=== PATIENT | female | born 1930 | race Caucasian/White ===

== ENCOUNTER → 2016-04-12 | Outpatient (CLI) | payer OTHER ==
[2016-04-12 13:05] LABS: ALT/SGPT 18 U/L (12-78); BLOOD UREA NITROGEN 24 mg/dl (7-18); CALCIUM 9.6 mg/dl (8.5-10.1); CARBON DIOXIDE 29 mmol/L (21-32); CHLORIDE 105 mmol/L (98-107); GLUCOSE 95 mg/dl (70-99); POTASSIUM 3.5 mmol/L (3.5-5.1); SODIUM 143 mmol/L (136-145)
[2016-04-12 13:08] LABS: ALB/GLOB RATIO 0.8 (0.9-2); ALKALINE PHOSPHATASE 89 U/L (45-117); AST/SGOT 17 U/L (15-37)
== END | disposition home or self-care (01) ==
LOC: C.LABPVFM 10:12
PROVIDERS: ATTEND Nurse Practitioner
DX: R53.83 Other fatigue (principal); I10 Essential (primary) hypertension; N28.9 Disorder of kidney and ureter, unspecified

== ENCOUNTER → 2016-04-14 | Outpatient (CLI) | payer OTHER | END | disposition home or self-care (01) | LOC: C.LABPVFM 14:00 | PROVIDERS: ATTEND Family Medicine | DX: N39.0 Urinary tract infection, site not specified (principal) ==

== ENCOUNTER → 2016-07-15 | Outpatient (CLI) | payer OTHER ==
--- NOTE | 2016-07-15 14:56 | DIAGNOSTIC IMAGING REPORT ---
KUB CLINICAL HISTORY: Generalized abdominal pain. FINDINGS: 2 AP supine abdominal radiographs are correlated with abdominal CT dated 01/26/2015. There is a nonobstructed abdominal bowel gas pattern. No evidence of intraperitoneal free air is seen on these supine views. There are no abnormal abdominal calcifications. Numerous phleboliths are again seen in the pelvis. Phleboliths are also seen along the course of the right gonadal vein. The skeletal structures are osteopenic. Mild lumbosacral spondylosis is observed. IMPRESSION: Nonobstructed abdominal bowel gas pattern. Electronically signed by: Amari Bridges M.D. 07/15/2016 2:54 PM Dictated Date/Time: 07/15/2016 2:53 PM
== END | disposition home or self-care (01) ==
LOC: C.RADPV 13:16
PROVIDERS: ATTEND Family Medicine
DX: R10.9 Unspecified abdominal pain (principal)

== ENCOUNTER → 2016-09-27 | Outpatient (CLI) | payer OTHER ==
[2016-09-27 17:45] LABS: BLOOD UREA NITROGEN 16 mg/dl (7-18); BUN/CREATININE RATIO 13.1 (10-20); CALCIUM 9.5 mg/dl (8.5-10.1); CARBON DIOXIDE 31 mmol/L (21-32); CHLORIDE 105 mmol/L (98-107); CHOLESTEROL 218 mg/dl (0-200); GLUCOSE 106 mg/dl (70-99); POTASSIUM 3.5 mmol/L (3.5-5.1); SODIUM 142 mmol/L (136-145)
[2016-09-27 17:48] LABS: HDL CHOLESTEROL 44 mg/dl; LDL CHOLESTEROL CALCULATED 140 mg/dl; TRIGLYCERIDES 170 mg/dl (0-150); VERY LOW DENSITY LIPOPROT CALC 34 mg/dl
== END | disposition home or self-care (01) ==
LOC: C.LABPVFM 12:12
PROVIDERS: ATTEND Family Medicine
DX: N39.0 Urinary tract infection, site not specified (principal); E78.5 Hyperlipidemia, unspecified

== ENCOUNTER → 2016-10-08 | Outpatient (CLI) | payer OTHER ==
[2016-10-08 13:07] LABS: URINE APPEARANCE CLEAR (CLEAR); URINE BILIRUBIN NEG (NEG); URINE COLOR YELLOW; URINE EPITHELIAL CELL AUTO >30 /lpf (0-5); URINE NITRITE NEG (NEG); URINE SPECIFIC GRAVITY 1.016 (1.000-1.030); UROBILINOGEN NEG (NEG); ZZUR CULT IF INDIC CLEAN CATCH YES
[2016-10-08 13:16] LABS: MANUAL MICROSCOPIC REQUIRED? NO; REVIEW REQ? NO
== END | disposition home or self-care (01) ==
LOC: C.LABPVFM 10:22
PROVIDERS: ATTEND Family Medicine
DX: N39.0 Urinary tract infection, site not specified (principal)

== ENCOUNTER → 2016-10-14 | Outpatient (CLI) | payer OTHER ==
--- NOTE | 2016-10-14 14:46 | DIAGNOSTIC IMAGING REPORT ---
ABD/PELVIS NO IV OR ORAL CONT HISTORY: 85 years-old Female N39.0 UTI (urinary tract infection)rule out stones acute urinary tract infection with concern for nephrolithiasis. Initial exam. COMPARISON: CT abdomen and pelvis 01/28/2015 TECHNIQUE: Multiple axial CT images of the abdomen and pelvis were obtained without contrast. A dose lowering technique was used consistent with the principals of ANKUR. FINDINGS: Subsegmental bibasilar atelectasis is present. There is no pneumoperitoneum. Inferior cardiac chambers are moderately enlarged. The liver, spleen, gallbladder, pancreas and adrenal glands are within normal limits. The kidneys and ureters are within normal limits without renal calculi or hydronephrosis. No significant urinary bladder wall thickening or surrounding inflammatory stranding. Prior hysterectomy. Moderate atherosclerotic plaquing of the abdominal aorta is present. There is no bulky adenopathy. Small sliding type hiatal hernia. No bowel obstruction or focal bowel wall thickening. Colonic diverticulosis without diverticulitis noted. The appendix appears normal. Soft tissues are unremarkable. Bones are intact. There is facet arthropathy of the lower lumbar spine. 2 mm anterolisthesis L4 on L5 is likely secondary to facet disease. IMPRESSION: 1. No acute intra-abdominal or intrapelvic abnormality identified, specifically no renal calculi or hydronephrosis. 2. Small sliding-type hiatal hernia. 3. Cardiomegaly. 4. Colonic diverticulosis without diverticulitis. The above report was generated using voice recognition software. It may contain grammatical, syntax or spelling errors. Electronically signed by: Oscar Murillo M.D. 10/14/2016 2:44 PM Dictated Date/Time: 10/14/2016 2:40 PM
== END | disposition home or self-care (01) ==
LOC: C.CTS 12:27
PROVIDERS: ATTEND Urology
DX: N39.0 Urinary tract infection, site not specified (principal); K44.9 Diaphragmatic hernia without obstruction or gangrene; I51.7 Cardiomegaly; K57.90 Diverticulosis of intestine, part unspecified, without perforation or abscess without bleeding

== ENCOUNTER 2019-03-18 22:08 | Inpatient (IN) ==
[2019-03-18] MEDS ORDERED: ONDANSETRON INJ 2 MG/ML 2 ML VIAL IV STA (22:22)
[2019-03-18] MEDS ORDERED: SODIUM CHLORIDE 0.9% 1000ML 1,000 ML IV SCH (22:30)
--- NOTE | 2019-03-18 22:30 | Emergency Department Note ---
Entered by Moi Mcclure acting as a scribe for History of Present Illness General Chief complaint: Vomiting Stated complaint: VOMITING, DEHYDRATION Time Seen by Provider: 03/18/19 22:14 Source: patient and family () History of Present Illness Onset (ago): week(s) (two and a half weeks ago) Location: abdomen Severity: similar to prior episodes Pain Consistency: + other (vomiting) Quality: + other (persistent) Associated symptoms: + other (Positive for nausea, weakness, and a decreased appetite. Negative for abdominal pain.) The patient is an 88 year old female who presents to the emergency department with complaints of persistent vomiting beginning two and a half weeks ago. Per , the patient has been persistently vomiting, and he notes that the patient cannot keep anything but soft foods down. He reports that the patient was in the emergency department ten days ago for similar symptoms. He states that the patient is able to keep food down for a few days at a time, but he notes that the patient starts to vomit again. He reports that the patient is weak, and he states that the patient has a decreased appetite. The patient compl ains of nausea but denies any abdominal pain. Home Medications Home Medications Medication Instructions Recorded Confirmed Type atorvastatin 80 mg tablet 80 mg PO HS 08/21/18 03/18/19 History omeprazole 20 mg capsule,delayed 20 mg PO DAILY 08/21/18 03/18/19 History release amlodipine 2.5 mg tablet 2.5 mg PO DAILY tab 11/07/18 03/18/19 History triamterene 37.5 1 tab PO DAILY tab 11/07/18 03/18/19 History mg-hydrochlorothiazide 25 mg tablet potassium chloride 10 meq PO HS 03/09/19 03/18/19 History potassium chloride 20 meq PO QAM 03/09/19 03/18/19 History ranitidine HCl 150 mg PO BID 03/09/19 03/18/19 History vit C,M-Qh-csawy-lutein-zeaxan 1 tab PO BID 03/09/19 03/18/19 History [PreserVision AREDS-2] brimonidine [Alphagan P] 1 drp OPB BIDM 03/18/19 03/18/19 History metoprolol succinate 25 mg PO DAILY 03/18/19 03/18/19 History travoprost 1 drp OPB HS 03/18/19 03/18/19 History Allergies Allergy/AdvReac Type Severity Reaction Status Date / Time Bactrim TABS Allergy Hives Uncoded 03/18/19 23:05 Past Med/Surg History Social History marital status: Current Living Situation: Spouse current occupational status: retired Feels Safe at Home: Yes Smoking Status: Never smoker Hx Alcohol Use: No Hx Substance Use: No Dental Care, Regularly: Yes Seatbelt Use: always Review of Systems See HPI for pertinent positives & negatives. and A total of 10 systems reviewed and were otherwise negative Physical Exam Vital Signs Vital Signs - 24 hr 03/18/19 22:12 03/19/19 00:05 Temperature 37.1 C Temperature Source Oral Pulse Rate 75 Pulse Rate [Apical] 72 Respiratory Rate 18 16 Respiratory Effort / Characteristics Non-Labored Spontaneous Respiratory Depth Normal Respiratory Pattern Regular Blood Pressure 169/95 H Blood Pressure [Left Arm] 178/96 H Blood Pressure Mean 119 Blood Pressure Mean [Left Arm] 123 Blood Pressure Position Sitting Pulse Oximetry 92 95 Oxygen Delivery Method Room Air Room Air Sepsis Recent Fever Within 48 Hours No Sepsis New/Unexplained Change in Mental Status No Sepsis Action Taken by Nursing No Action Required CONSTITUTIONAL/VITAL SIGNS: Reviewed / noted above. GENERAL: Non-toxic in appearance. INTEGUMENTARY: Warm, dry, and [place]. HEAD: Normocephalic. EYES: without scleral icterus or trauma. ENT/OROPHARYNX: clear. Mucous membranes are dry. LYMPHADENOPATHY/NECK: Is supple without lymphadenopathy or meningismus. RESPIRATORY: Lungs clear and equal. CARDIOVASCULAR: Regular rate and rhythm. GI/ABDOMEN: Soft. No organomegaly or pulsatile mass. No rebound or guarding. Normal bowel sounds. Mild mid abdominal tenderness. EXTREMITIES: Warm and well perfused. BACK: No CVA tenderness. NEUROLOGICAL: Intact without focal deficits. PSYCHIATRIC: normal affect. MUSCULOSKELETAL: Normally developed with good muscle tone. Course Course 2216: The patient was evaluated in room B12. A complete history and physical exam was performed. 0047: I reevaluated and updated the patient. Her refuses to take her home because he feels that she is took weak and he cannot get her to the bath room. 0105: Upon reevaluation, the patient is stable. I discussed the findings and the treatment plan with the patient. She expresses agreement and understanding. I spoke with Dr. Skinner of the [facility] Hospitalist Service. The patient will be evaluated for further management. Consultations Consultation #1: I reviewed the patient's case with Dr. Skinner - Hospitalist, [facility]. He will evaluate the patient for further management. Time: 01:05 Administered Medications Ioversol (Optiray 320 100ml) 100 ml IV ONCE PRN PRN Reason: Interaction Checking Stop: 03/23/19 00:02 Last Admin: 03/19/19 00:04 Dose: 93 ml Documented by: [id number] Discontinued Medications Sodium Chloride (Nss 1000ml) 1,000 mls @ 999 mls/hr IV .Q1H1M CAROL Stop: 03/18/19 23:30 Last Infusion: 03/18/19 23:50 Dose: 0 mls/hr Documented by: [id number] Admin: 03/18/19 22:44 Dose: 999 mls/hr Documented by: [id number] Ceftriaxone Sodium (Rocephin) 1,000 mg in 50 mls @ 100 mls/hr IV NOW STA Stop: 03/18/19 23:45 Last Infusion: 03/19/19 00:32 Dose: 0 mls/hr Documented by: [id number] Admin: 03/19/19 00:02 Dose: 100 mls/hr Documented by: [id number] Ondansetron HCl (Zofran) 4 mg IV NOW STA Stop: 03/18/19 22:23 Last Admin: 03/18/19 22:44 Dose: 4 mg Documented by: [id number] Medical Decision Making Differential Diagnosis Differential diagnosis: Etiologies such as gastroenteritis, food borne illness, infections, appendicitis, diverticulitis, inflammatory bowel disease, obstruction, GI bleed, biliary pathology, cardiac process, intracranial process, as well as others were entertained. Medical Records Attestation: I reviewed the patient's medical records. Home Medications Current Medication List: was personally reviewed by me Laboratory Data Attestation: I reviewed the patient's lab results. Result diagrams: 03/18/19 22:41 03/18/19 22:41 Lab Results 03/18/19 03/18/19 03/18/19 Range/Units 22:41 22:41 22:41 WBC 12.29 H (4.8-10.8) K/uL RBC 4.86 (4.2-5.4) M/uL Hgb 14.2 (12.0-16.0) g/dL Hct 40.9 (37-47) % MCV 84.2 (80-100) fL MCH 29.2 (25-34) pg MCHC 34.7 (32-36) g/dL RDW Std Deviation 43.8 (36.4-46.3) fL RDW Coeff of Geri 14.2 (11.5-14.5) % Plt Count 230 (130-400) K/uL MPV 10.2 (7.4-10.4) fL Immature Gran % (Auto) 0.2 % Neut % (Auto) 58.3 % Lymph % (Auto) 33.5 % [place] % (Auto) 7.1 % Eos % (Auto) 0.7 % Baso % (Auto) 0.2 % Immature Gran # (Auto) 0.02 (0.00-0.02) K/uL Neut # (Auto) 7.17 H (1.4-6.5) K/uL Lymph # (Auto) 4.12 H (1.2-3.4) K/uL [place] # (Auto) 0.87 H (0.11-0.59) K/uL Eos # (Auto) 0.09 (0-0.5) K/uL Baso # (Auto) 0.02 (0-0.2) K/uL Sodium 139 (136-145) mmol/L Potassium 3.1 L (3.5-5.1) mmol/L Chloride 100 (98-107) mmol/L Carbon Dioxide 32 (21-32) mmol/L Anion Gap 7.0 (3-11) BUN 17 (7-18) mg/dl Creatinine 1.21 H (0.6-1.2) mg/dl Est Cr Clr Drug Dosing Not Reportable Est GFR ( Amer) 45.9 Est GFR (Non-Af Amer) 39.6 BUN/Creatinine Ratio 13.7 (10-20) Glucose 121 H (70-99) mg/dl Lactate 1.7 (0.4-2.0) mmol/L Calcium 9.7 (8.5-10.1) mg/dl Total Bilirubin 2.0 H (0.2-1) mg/dl AST 23 (15-37) U/L ALT 21 (12-78) U/L Alkaline Phosphatase 97 (45-117) U/L Troponin I < 0.015 (0-0.045) ng/ml Total Protein 7.9 (6.4-8.2) gm/dl Albumin 3.5 (3.4-5.0) gm/dl Globulin 4.4 H (2.5-4.0) gm/dl Albumin/Globulin Ratio 0.8 L (0.9-2) Lipase 328 (73-393) U/L Specimen Hemolysis Urine Color Urine Appearance (Clear) Urine pH (4.5-7.5) Ur Specific [place] (1.000-1.030) Urine Protein (Negative) Urine Glucose (UA) (Negative) Urine Ketones (Negative) Urine Blood (Negative) Urine Nitrite (Negative) Urine Bilirubin (Negative) Urine Urobilinogen (Negative) Ur Leukocyte Esterase (Negative) Urine WBC (Auto) (0-5) /hpf Urine RBC (Auto) (0-4) /hpf U Hyaline Cast (Auto) (0-5) /lpf U Epithel Cells (Auto) (0-5) /lpf Urine Bacteria (Auto) (Negative) Urine Yeast 03/18/19 Range/Units 22:41 WBC (4.8-10.8) K/uL RBC (4.2-5.4) M/uL Hgb (12.0-16.0) g/dL Hct (37-47) % MCV (80-100) fL MCH (25-34) pg MCHC (32-36) g/dL RDW Std Deviation (36.4-46.3) fL RDW Coeff of Geri (11.5-14.5) % Plt Count (130-400) K/uL MPV (7.4-10.4) fL Immature Gran % (Auto) % Neut % (Auto) % Lymph % (Auto) % [place] % (Auto) % Eos % (Auto) % Baso % (Auto) % Immature Gran # (Auto) (0.00-0.02) K/uL Neut # (Auto) (1.4-6.5) K/uL Lymph # (Auto) (1.2-3.4) K/uL [place] # (Auto) (0.11-0.59) K/uL Eos # (Auto) (0-0.5) K/uL Baso # (Auto) (0-0.2) K/uL Sodium (136-145) mmol/L Potassium (3.5-5.1) mmol/L Chloride (98-107) mmol/L Carbon Dioxide (21-32) mmol/L Anion Gap (3-11) BUN (7-18) mg/dl Creatinine (0.6-1.2) mg/dl Est Cr Clr Drug Dosing Est GFR ( Amer) Est GFR (Non-Af Amer) BUN/Creatinine Ratio (10-20) Glucose (70-99) mg/dl Lactate (0.4-2.0) mmol/L Calcium (8.5-10.1) mg/dl Total Bilirubin (0.2-1) mg/dl AST (15-37) U/L ALT (12-78) U/L Alkaline Phosphatase (45-117) U/L Troponin I (0-0.045) ng/ml Total Protein (6.4-8.2) gm/dl Albumin (3.4-5.0) gm/dl Globulin (2.5-4.0) gm/dl Albumin/Globulin Ratio (0.9-2) Lipase (73-393) U/L Specimen Hemolysis Urine Color Yellow Urine Appearance Turbid A (Clear) Urine pH 7.0 (4.5-7.5) Ur Specific [place] 1.016 (1.000-1.030) Urine Protein 1+ H (Negative) Urine Glucose (UA) Negative (Negative) Urine Ketones Negative (Negative) Urine Blood 1+ H (Negative) Urine Nitrite Positive A (Negative) Urine Bilirubin Negative (Negative) Urine Urobilinogen Negative (Negative) Ur Leukocyte Esterase 3+ H (Negative) Urine WBC (Auto) >30 H (0-5) /hpf Urine RBC (Auto) 0-4 (0-4) /hpf U Hyaline Cast (Auto) 5-10 H (0-5) /lpf U Epithel Cells (Auto) >30 H (0-5) /lpf Urine Bacteria (Auto) 4+ H (Negative) Urine Yeast Not Reportable Imaging Data Radiologist's Impression: Radiology results as stated below per my review and the radiologist's interpretation: CT ABDOMEN & PELVIS With Contrast: No acute process along the GI tract. Normal appendix. Cholelithiasis without cholecystitis. Status post hysterectomy. Unremarkable appearance of the liver, pancreas, spleen, adrenal glands, and kidneys. Age-indeterminate superior endplate compression fracture at T12. Mild posterior cortical buckling. Correlate for point tenderness. Radiologist: Edson Manzano MD. ECG Data Attestation: I personally reviewed and interpreted this ECG as follows: Indication: + weakness Rate (beats per minute): 64 Rhythm: + normal sinus ECG Intervals/blocks: + Normal QT-c ECG ST segments: + ST depression (Laterally); no ST elevation ECG Findings: no PVCs Blood Pressure Blood Pressure Findings: Elevated blood pressure Blood Pressure Disposition: further management by hospitalist MDM Narrative This is a 88-year-old female who presents to the ED with a chief complaint of nausea and vomiting as well as dehydration and weakness. The patient symptoms started the last week of February. She has had persistent symptoms since that time. The reports she is become more weak over time. She last vomited earlier today. She is only eating small amounts of liquid like fluids such as Ensure and propel. The brought the patient in for further evaluation. She was evaluated March 09 and felt to be dehydrated. Her physical exam reveals some mild abdominal tenderness. This causes her to burp. She does have some nausea. Her mucous membranes are dry. Her exam was otherwise unremarkable. The patient's white blood cell count is 12.29. Chemistry panel was unremarkable. Urine is suggestive of infection. Lactate was negative. TSH was normal. CT scan of the abdomen pelvis did not show acute process. The patient was treated with IV fluids as well as IV Rocephin and IV Zofran. The patient was reassessed. She was told the results as was the . The does not feel he can take care of her at home because she is too weak to get up and go to the bathroom on her own. Because the patient has had nausea and vomiting, oral antibiotics may not be appropriate at this point until this is better controlled. The patient will be evaluated by the hospitalist service. Impression & Plan Acute UTI (urinary tract infection), Weakness, Nausea & vomiting Discharge Plan Visit Data Chief Complaint: Vomiting Stated Complaint: VOMITING, DEHYDRATION ED Provider: Andrew Larson Discharge Problem: Acute UTI (urinary tract infection), Weakness, Nausea & vomiting Patient Disposition: Being Evaluated by Hospitalist Forms Stand Alone Forms: My [facility] Prescriptions Prescriptions: No Action amlodipine [Norvasc] 2.5 mg tablet 2.5 mg PO DAILY RF: 0 triamterene-hydrochlorothiazid [Maxzide-25mg] 37.5-25 mg tablet 1 tab PO DAILY RF: 0 omeprazole 20 mg capsule,delayed release(DR/EC) 20 mg PO DAILY RF: 0 atorvastatin [Lipitor] 80 mg tablet 80 mg PO HS RF: 0 travoprost 0.004 % drops 1 drp OPB HS RF: 0 Alphagan P 0.1 % drops 1 drp OPB BIDM RF: 0 metoprolol succinate 25 mg tablet extended release 24 hr 25 mg PO DAILY RF: 0 potassium chloride 10 mEq capsule, extended release 10 meq PO HS RF: 0 PreserVision AREDS-2 [id number]-[id number]-mg Capsule 1 tab PO BID RF: 0 potassium chloride 10 mEq capsule, extended release 20 meq PO QAM RF: 0 ranitidine HCl 150 mg tablet 150 mg PO BID RF: 0 Referrals Referrals: Karla Tyler MD [Primary Care Provider] - Discharge Problem: Nausea & vomiting Qualifiers: Vomiting type: unspecified Vomiting Intractability: non-intractable Qualified Code(s): R11.2 - Nausea with vomiting, unspecified The scribe's documentation has been prepared under my direction and personally reviewed by me in its entirety. I confirm that the note above accurately reflects all work, treatment, procedures, and medical decision making performed by me.
[2019-03-18 22:57] LABS: Basophils # (auto) 0.02 K/uL (0-0.2); Basophils % (auto) 0.2 %; Eosinophils # (auto) 0.09 K/uL (0-0.5); Eosinophils % (auto) 0.7 %; Hematocrit (blood only) 40.9 % (37-47); Hemoglobin 14.2 g/dL (12.0-16.0); Immature Granulocytes # (auto) 0.02 K/uL (0.00-0.02); Immature Granulocytes % (auto) 0.2 %; Lymphocytes # (auto) 4.12 K/uL (1.2-3.4); Lymphocytes % (auto) 33.5 %; Mean Corpuscular Hemoglobin 29.2 pg (25-34); Mean Corpuscular Hgb Conc 34.7 g/dL (32-36); Mean Corpuscular Volume 84.2 fL (80-100); Mean Platelet Volume 10.2 fL (7.4-10.4); Monocytes # (auto) 0.87 K/uL (0.11-0.59); Monocytes % (auto) 7.1 %; Neutrophils # (auto) 7.17 K/uL (1.4-6.5); Neutrophils % (auto) 58.3 %; Platelet Count 230 K/uL (130-400); RDW Coefficient of Variation 14.2 % (11.5-14.5); RDW Standard Deviation 43.8 fL (36.4-46.3); Red Blood Count 4.86 M/uL (4.2-5.4); White Blood Count 12.29 K/uL (4.8-10.8)
[2019-03-18 23:00] LABS: Appearance Urine Turbid (Clear); Bacteria Urine Automated 4+ (Negative); Bilirubin Urine Negative (Negative); Blood Urine 1+ (Negative); Color Urine Yellow; Epithelial Cell Urine Auto >30 /lpf (0-5); Glucose Urine UA Negative (Negative); Ketones Urine Negative (Negative); Leukocyte Esterase Urine 3+ (Negative); Nitrite Urine Positive (Negative); Protein Urine 1+ (Negative); Specific Gravity Urine 1.016 (1.000-1.030); Urobilinogen Urine Negative (Negative); WBC Urine Automated >30 /hpf (0-5)
[2019-03-18] MEDS ORDERED: cefTRIAXone SODIUM 1,000 MG/50 ML BAG IV STA (23:16)
[2019-03-18 23:21] LABS: Alanine Aminotransferase 21 U/L (12-78); Albumin Level 3.5 gm/dl (3.4-5.0); Aspartate Aminotransferase 23 U/L (15-37); BUN Creatinine Ratio 13.7 (10-20); Blood Urea Nitrogen 17 mg/dl (7-18); Calcium 9.7 mg/dl (8.5-10.1); Carbon Dioxide 32 mmol/L (21-32); Chloride 100 mmol/L (98-107); Est GFR (African American) 45.9; Est GFR (Non-African American) 39.6; Glucose 121 mg/dl (70-99); Lipase 328 U/L (73-393); Potassium 3.1 mmol/L (3.5-5.1); Sodium 139 mmol/L (136-145)
[2019-03-18 23:25] LABS: Albumin Globulin Ratio 0.8 (0.9-2); Alkaline Phosphatase 97 U/L (45-117); Globulin 4.4 gm/dl (2.5-4.0); Total Protein 7.9 gm/dl (6.4-8.2); Troponin I < 0.015 ng/ml (0-0.045)
[2019-03-18 23:43] LABS: RBC Urine Automated 0-4 /hpf (0-4)
[2019-03-19] MEDS ORDERED: IOVERSOL 100ml IV PRN (00:03)
--- NOTE | 2019-03-19 02:19 | History & Physical Report ---
Date of Service March 19, 2019 Assessment & Plan (1) Vomiting: Venita Arteaga is an 88-year-old female with a past medical history of stroke with residual short-term memory deficits, hypertension, hyperlipidemia, COPD/asthma who presents with 2 and half weeks of persistent nausea/vomiting and inadequate p.o. intake. Persistent nausea/vomiting with inadequate p.o. intake Approximately 2 weeks of symptoms, patient with minimal p.o. intake due to nausea Creatinine 1.21, patient extremely thin unreliable BUN ratio. Appears clinically volume depleted Zofran IV every 4 hours as needed Liquid diet as tolerated KCl riders as below, followed by IVFM H NSS +20KCl at 70 an hour and encourage p.o. intake. Pressure stable CT abdomen with no acute findings Protonix 20 mg p.o. daily Hypokalemia Potassium 3.1 on admit in the setting of nausea/vomiting and inadequate p.o. intake K riders 10 M EQ x4, resume oral supplementation once tolerating p.o. Repeat BMP daily Prerenal azotemia Creatinine acutely increased from baseline of approximately 1.1-1.21 in the setting of volume depletion Hydration as above and below Repeat BMP daily History of stroke with residual memory deficit Continue aspirin 81 mg daily Blood pressure control as below Continue atorvastatin 80 mg daily No sign of acute stroke pathology Hypertension Continue amlodipine 2.5 mg p.o. daily Continue metoprolol 25 mg p.o. daily Continue try material/hydrochlorothiazide 37.5/25 mg daily Age-indeterminate T12 compression fracture Patient denies pain on exam in ED Follow clinically ? 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 intake. She seen at the bedside with her . They report that about 2 and half weeks ago she developed nausea and vomiting without cold-like symptoms. No fever, chills, sweats. No abdominal pain. No diarrhea or constipation. No chest pain, lightheadedness, or dizziness. She has since become weak and has been unable to tolerate solid food. She is able to tolerate a small amount of applesauce or Jell-O, but has not been able to keep down Ensure, propel, or toast. She has been bedridden for the last 3 days with her attempting to care for her. They presented to the emergency room after her lips became dry and cracked and they were concerned about severe dehydration. She reports she has not had any blood or bile in her emesis, no bloody or melanic bowel movements. Endorses chronic decreased vision in her left eye, otherwise notes no other symptoms or changes. Medical history: Reviewed, see EMR Medications: Reviewed, see EMR Surgical history: Reviewed, see EMR Allergies: Reviewed, Bactrim (hives) Social: No current or former tobacco use. No alcohol use. No recreational drug use. Lives at home with her , independent. CODE STATUS: DNR/DNI. Confirmed with patient and at bedside Allergies Allergy/AdvReac Type Severity Reaction Status Date / Time Bactrim TABS Allergy Hives Uncoded 03/18/19 23:05 Home Medications Home Medications Medication Instructions Recorded Confirmed Type atorvastatin 80 mg tablet 80 mg PO HS 08/21/18 03/18/19 History omeprazole 20 mg capsule,delayed 20 mg PO DAILY 08/21/18 03/18/19 History release amlodipine 2.5 mg tablet 2.5 mg PO DAILY tab 11/07/18 03/18/19 History triamterene 37.5 1 tab PO DAILY tab 11/07/18 03/18/19 History mg-hydrochlorothiazide 25 mg tablet potassium chloride 10 meq PO HS 03/09/19 03/18/19 History potassium chloride 20 meq PO QAM 03/09/19 03/18/19 History ranitidine HCl 150 mg PO BID 03/09/19 03/18/19 History vit C,B-Ds-indiq-lutein-zeaxan 1 tab PO BID 03/09/19 03/18/19 History [PreserVision AREDS-2] brimonidine [Alphagan P] 1 drp OPB BIDM 03/18/19 03/18/19 History metoprolol succinate 25 mg PO DAILY 03/18/19 03/18/19 History travoprost 1 drp OPB HS 03/18/19 03/18/19 History Past Med/Surg History Social History marital status: Current Living Situation: Spouse current occupational status: retired Feels Safe at Home: Yes Smoking Status: Never smoker Hx Alcohol Use: No Hx Substance Use: No Dental Care, Regularly: Yes Seatbelt Use: always Review of Systems Review of Systems: All systems reviewed & are unremarkable except as noted in HPI & below Physical Exam Physical Exam: General: Oriented to year, president, name, and place but not month or date. No acute distress, appears fatigued. Cooperative. HEENT: Atraumatic, normocephalic. Mucous membranes dry. Neck veins flat. No facial asymmetry. Pulm: CTAB A&P.Diminished air movement. Symmetrical chest rise. No increase work of breathing. No respiratory distress. Cardiac: RRR, -mrg. Radial pulses intact and symmetrical. Abdominal: Nontender, nondistended, soft. BS present. Extremities: No swelling, moving extremities equally. Plantarflexion/dorsiflexion, recreation therapy teacher strength, elbow flexion/extension intact 5/5 and symemtrical. no sensory deficits. Results & Data Vital Signs (Past 12 Hours) Vital Signs Temp Pulse Pulse Resp BP BP Pulse Ox 03/19/19 00:05 72 16 178/96 H 95 03/18/19 22:12 37.1 C 75 18 169/95 H 92 Supervising Physician Co-Signing Physician Notes Attending addendum: I have physically seen this patient, have supervised the medical residents activities, and agree with the H&P unless as otherwise noted. Assessment and Plan: Intractable nausea and vomiting/decreased oral intake/dehydration- Normal CT of abdomen and pelvis Zofran 4 mg IV every 6 hours as needed. Liquid diet to be advanced as tolerated. Protonix 40 mg p.o. daily. IV fluids NSS + KCl 20 mEq at 80 mils per hour Acute renal insufficiency/hypokalemia- Placed on NSS + KCl 20 mEq at 80 mils per hour. Repeat laboratories in the a.m. Hypertension/cerebrovascular disease/memory dysfunction- Continue aspirin, amlodipine, metoprolol and atorvastatin. Hold triamterene/HCTZ. Deconditioning- PT OT assessment Prior to discharge Remaining orders and notations as noted. Resident Activity Tracking Resident Involvement: Resident Care Provided Care Provided: Adult Hospital Medicine (1) Nausea & vomiting Vomiting Intractability: non-intractable Vomiting type: unspecified Qualifi ed Code(s): R11.2 - Nausea with vomiting, unspecified (2) Vomiting Nausea presence: with nausea Vomiting Intractability: non-intractable Vomiting type: unspecified Qualified Code(s): R11.2 - Nausea with vomiting, unspecified
--- NOTE | 2019-03-19 03:29 | Billing Data ---
Date of Service March 19, 2019 Coding Level of Care Code 72836 OBS Care - Level 3
[2019-03-19] MEDS: POTASSIUM CHLORIDE / WTR 10 MEQ/100 ML PLCT IV SCH ×4 (03:54→07:48)
[2019-03-19] MEDS ORDERED: PATIENT'S HEIGHT AND/OR WEIGHT NEEDED SCH (04:00)
--- NOTE | 2019-03-19 07:45 | CT Scan Report ---
CT SCAN OF THE ABDOMEN AND PELVIS WITH IV CONTRAST CLINICAL HISTORY: Generalized abdominal pain. Nausea and vomiting. COMPARISON STUDY: Abdominal CT dated 03/09/2019. TECHNIQUE: Following the IV administration of 93 cc of Optiray 320, CT scan of the abdomen and pelvi s is performed from the lung bases to the proximal femora. Images are reviewed in the axial, sagittal , and coronal planes. IV contrast was administered without complication. A dose lowering technique wa s utilized adhering to the principles of ALARA. The examination is degraded by streak artifact from t he arms which could not be elevated above the abdomen as well as by motion. CT DOSE: 912.15 mGy.cm FINDINGS: Lung bases: The heart is top normal in size and without pericardial effusion. There is a calcified gr anuloma the left lung base. The lung bases are otherwise clear noting bibasilar scarring/atelectasis. A small to moderate hiatal hernia is noted. Liver: The contrast-enhanced liver is normal in size, contour, and attenuation. There is no intrahepa tic biliary ductal dilatation. The hepatic veins and portal veins are patent. Gallbladder: There are layering calcified gallstones with no CT evidence of acute cholecystitis. Spleen: Normal in size and attenuation. Pancreas: Moderately atrophic and grossly unremarkable. Adrenal glands: Unremarkable. Kidneys: The contrast enhanced kidneys are atrophic and without hydronephrosis. The kidneys enhance s ymmetrically. Scattered subcentimeter cortical hypodensities likely represent cysts but are too small for definitive characterization. Abdominal vasculature: The abdominal aorta is normal in course and caliber noting moderate atheroscle rotic calcification. Bowel: There is no bowel obstruction. Residual enteric contrast is noted in the rectosigmoid colon. T here is mild colonic diverticulosis without CT evidence of acute diverticulitis. There is also mild d iverticulosis of the small bowel. The appendix is well-visualized and normal. Peritoneum: There is no intraperitoneal free air or abdominal ascites. There is a small fat-containin g umbilical hernia. Lymphadenopathy: None. Pelvic viscera: The bladder is normal as visualized. The uterus is surgically absent. No adnexal lesi on is seen. Skeletal structures: The skeletal structures are osteopenic. There is a moderate chronic compression deformity of T12. There is mild lumbosacral spondylosis. No lytic or blastic lesions are seen. IMPRESSION: 1. Streak and motion degraded examination. 2. There are no acute infectious or inflammatory findings in the abdomen or pelvis. 3. Cholelithiasis. 4. Additional findings as above. ACT 112: Negative or not required by law. Electronically signed by: Amari Bridges M.D. 03/19/2019 7:44 AM
[2019-03-19] MEDS: ONDANSETRON INJ 2 MG/ML 2 ML VIAL IV PRN ×2 (07:49→15:58)
[2019-03-19] MEDS: SODIUM CHLOR 0.45% + 20MEQ KCL 20 MEQ/1,000 ML BAG IV SCH ×2 (08:37→21:42)
[2019-03-19] MEDS: METOPROLOL SUCC 25MG EXT REL TAB PO SCH (08:39)
[2019-03-19] MEDS: CEROVITE ADV FORMULA TAB PO SCH ×2 (08:40→21:20)
[2019-03-19] MEDS: TRIAMTERENE/HCTZ 37.5/25MG TAB PO SCH (08:40)
[2019-03-19] MEDS: AMLODIPINE BESYLATE 5 MG TAB PO SCH (08:40)
[2019-03-19] MEDS: ASPIRIN 81 MG ECTAB PO SCH (08:40)
[2019-03-19] MEDS: PANTOprazole 40 MG TAB PO SCH (08:40)
[2019-03-19] MEDS: POTASSIUM CHLORIDE 10 MEQ TABCR PO SCH ×2 (08:40→21:20)
[2019-03-19] MEDS: ENOXAPARIN INJ 30 MG/0.3 ML SYR SQ SCH (08:41)
[2019-03-19] MEDS ORDERED: INFLUENZA Vaccine HIGH DOSE 65+yrs 0.5 mL Syr IM ONE (08:45)
[2019-03-19] MEDS ORDERED: PNEUMOCOCCAL Polysaccharide Vaccine 25mcg/0.5mL vial/Syr IM ONE (08:45)
--- NOTE | 2019-03-19 09:39 | Electrocardiogram Report ---
Test Reason : Blood Pressure : / mmHG Vent. Rate : 064 BPM Atrial Rate : 064 BPM P-R Int : 148 ms QRS Dur : 090 ms QT Int : 410 ms P-R-T Axes : 068 -22 127 degrees QTc Int : 422 ms Normal sinus rhythm Abnormal ECG When compared with ECG of 09-MAR-2019 16:19, T wave inversion now evident in Anterolateral leads Confirmed by Darrel Alcala ([id number]) on 03/19/2019 9:38:59 AM Referred By: REFERRED SELF Confirmed By:Darrel Alcala
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
[2019-03-19] MEDS: MAGNESIUM SULFATE / D5W 1 GM/100 ML BAG IV SCH ×2 (16:17→17:28)
[2019-03-19] MEDS ORDERED: PROMETHAZINE HCL 12.5 MG in SODIUM CHLORIDE 0.9% 50 ML IV PRN (16:53)
[2019-03-19] MEDS: ATORVASTATIN 40 MG TAB PO SCH (21:20)
[2019-03-19] MEDS: ACETAMINOPHEN 325 MG TAB PO PRN (21:20)
[2019-03-20 05:26] LABS: Basophils # (auto) 0.02 K/uL (0-0.2); Basophils % (auto) 0.2 %; Eosinophils # (auto) 0.22 K/uL (0-0.5); Eosinophils % (auto) 2.4 %; Hematocrit (blood only) 36.5 % (37-47); Hemoglobin 12.3 g/dL (12.0-16.0); Immature Granulocytes # (auto) 0.01 K/uL (0.00-0.02); Immature Granulocytes % (auto) 0.1 %; Lymphocytes # (auto) 3.69 K/uL (1.2-3.4); Mean Corpuscular Hemoglobin 28.3 pg (25-34); Mean Corpuscular Hgb Conc 33.7 g/dL (32-36); Mean Corpuscular Volume 84.1 fL (80-100); Mean Platelet Volume 9.9 fL (7.4-10.4); Monocytes # (auto) 0.86 K/uL (0.11-0.59); Monocytes % (auto) 9.6 %; Neutrophils % (auto) 46.7 %; Platelet Count 194 K/uL (130-400); RDW Coefficient of Variation 14.3 % (11.5-14.5); RDW Standard Deviation 44.5 fL (36.4-46.3); Red Blood Count 4.34 M/uL (4.2-5.4)
[2019-03-20 05:55] LABS: BUN Creatinine Ratio 10.8 (10-20); Calcium 8.9 mg/dl (8.5-10.1); Creatinine Clr Calc Pharmacy 38.3 ml/min; Est GFR (African American) 59.3; Est GFR (Non-African American) 51.1; Magnesium 2.2 mg/dl (1.8-2.4); Potassium 3.5 mmol/L (3.5-5.1)
[2019-03-20] MEDS: ENOXAPARIN INJ 30 MG/0.3 ML SYR SQ SCH (09:03)
[2019-03-20] MEDS: ASPIRIN 81 MG ECTAB PO SCH (09:10)
[2019-03-20] MEDS: TRIAMTERENE/HCTZ 37.5/25MG TAB PO SCH (09:11)
[2019-03-20] MEDS: POTASSIUM CHLORIDE 10 MEQ TABCR PO SCH ×2 (09:11→20:48)
[2019-03-20] MEDS: METOPROLOL SUCC 25MG EXT REL TAB PO SCH (09:11)
[2019-03-20] MEDS: CEROVITE ADV FORMULA TAB PO SCH ×2 (09:11→20:48)
[2019-03-20] MEDS: PANTOprazole 40 MG TAB PO SCH (09:12)
[2019-03-20] MEDS: AMLODIPINE BESYLATE 5 MG TAB PO SCH (09:12)
[2019-03-20] MEDS: SODIUM CHLOR 0.45% + 20MEQ KCL 20 MEQ/1,000 ML BAG IV SCH ×2 (09:44→22:08)
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
[2019-03-20] MEDS: BRIMONIDINE TARTRATE 0.1% OPB SCH (17:43)
[2019-03-20] MEDS: ATORVASTATIN 40 MG TAB PO SCH (20:48)
[2019-03-20] MEDS: TRAVOPROST Z 0.004% OPH SOLN 2.5 ML BTL OP SCH (22:08)
[2019-03-20] MEDS: cefTRIAXone SODIUM 1,000 MG in DEXTROSE 5% 50 ML IV SCH ×2 (23:37)
[2019-03-21] MEDS: ONDANSETRON INJ 2 MG/ML 2 ML VIAL IV PRN (03:51)
[2019-03-21 05:58] LABS: Hematocrit (blood only) 36.2 % (37-47); Hemoglobin 11.9 g/dL (12.0-16.0); Mean Corpuscular Hgb Conc 32.9 g/dL (32-36); Mean Corpuscular Volume 85.2 fL (80-100); Platelet Count 209 K/uL (130-400); RDW Coefficient of Variation 14.5 % (11.5-14.5); RDW Standard Deviation 45.4 fL (36.4-46.3); Red Blood Count 4.25 M/uL (4.2-5.4); White Blood Count 8.88 K/uL (4.8-10.8)
[2019-03-21 06:34] LABS: BUN Creatinine Ratio 9.8 (10-20); Calcium 8.7 mg/dl (8.5-10.1); Creatinine Clr Calc Pharmacy 36.5 ml/min; Est GFR (African American) 55.8; Est GFR (Non-African American) 48.2; Potassium 3.6 mmol/L (3.5-5.1)
[2019-03-21] MEDS: BRIMONIDINE TARTRATE 0.1% OPB SCH ×2 (08:37→18:32)
[2019-03-21] MEDS: PANTOprazole 40 MG TAB PO SCH (08:38)
[2019-03-21] MEDS: POTASSIUM CHLORIDE 10 MEQ TABCR PO SCH ×2 (08:38→18:32)
[2019-03-21] MEDS: METOPROLOL SUCC 25MG EXT REL TAB PO SCH (08:38)
[2019-03-21] MEDS: CEROVITE ADV FORMULA TAB PO SCH ×2 (08:38→18:33)
[2019-03-21] MEDS: TRIAMTERENE/HCTZ 37.5/25MG TAB PO SCH (08:39)
[2019-03-21] MEDS: ENOXAPARIN INJ 30 MG/0.3 ML SYR SQ SCH (08:39)
[2019-03-21] MEDS: ASPIRIN 81 MG ECTAB PO SCH (08:39)
[2019-03-21] MEDS: AMLODIPINE BESYLATE 5 MG TAB PO SCH (08:39)
[2019-03-21] MEDS ORDERED: BRIMONIDINE TARTRATE 0.2% 5ML OP SCH (09:00)
[2019-03-21] MEDS: SODIUM CHLOR 0.45% + 20MEQ KCL 20 MEQ/1,000 ML BAG IV SCH ×2 (09:18→21:44)
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
[2019-03-21] MEDS: ATORVASTATIN 40 MG TAB PO SCH (18:33)
[2019-03-21] MEDS: TRAVOPROST Z 0.004% OPH SOLN 2.5 ML BTL OP SCH (22:43)
[2019-03-21] MEDS: cefTRIAXone SODIUM 1,000 MG in DEXTROSE 5% 50 ML IV SCH (22:43)
[2019-03-22 05:57] LABS: Basophils # (auto) 0.02 K/uL (0-0.2); Basophils % (auto) 0.2 %; Eosinophils # (auto) 0.28 K/uL (0-0.5); Eosinophils % (auto) 2.9 %; Hemoglobin 12.5 g/dL (12.0-16.0); Immature Granulocytes # (auto) 0.02 K/uL (0.00-0.02); Immature Granulocytes % (auto) 0.2 %; Lymphocytes # (auto) 2.85 K/uL (1.2-3.4); Lymphocytes % (auto) 29.2 %; Mean Corpuscular Hemoglobin 28.7 pg (25-34); Mean Corpuscular Hgb Conc 32.9 g/dL (32-36); Mean Corpuscular Volume 87.2 fL (80-100); Mean Platelet Volume 10.2 fL (7.4-10.4); Monocytes # (auto) 0.66 K/uL (0.11-0.59); Monocytes % (auto) 6.8 %; Neutrophils # (auto) 5.94 K/uL (1.4-6.5); Neutrophils % (auto) 60.7 %; Platelet Count 191 K/uL (130-400); RDW Coefficient of Variation 14.6 % (11.5-14.5); RDW Standard Deviation 46.6 fL (36.4-46.3); Red Blood Count 4.36 M/uL (4.2-5.4); White Blood Count 9.77 K/uL (4.8-10.8)
[2019-03-22 06:27] LABS: Albumin Level 2.9 gm/dl (3.4-5.0); BUN Creatinine Ratio 7.7 (10-20); Calcium 9.1 mg/dl (8.5-10.1); Creatinine Clr Calc Pharmacy 35.8 ml/min; Est GFR (African American) 54.5; Potassium 3.7 mmol/L (3.5-5.1)
[2019-03-22 06:29] LABS: Albumin Globulin Ratio 0.8 (0.9-2); Bilirubin,Total 1.5 mg/dl (0.2-1); Globulin 3.7 gm/dl (2.5-4.0); Total Protein 6.6 gm/dl (6.4-8.2)
[2019-03-22] MEDS: PANTOprazole 40 MG TAB PO SCH (08:52)
[2019-03-22] MEDS: TRIAMTERENE/HCTZ 37.5/25MG TAB PO SCH (08:53)
[2019-03-22] MEDS: POTASSIUM CHLORIDE 10 MEQ TABCR PO SCH ×2 (08:53→20:33)
[2019-03-22] MEDS: CEROVITE ADV FORMULA TAB PO SCH ×2 (08:53→20:31)
[2019-03-22] MEDS: METOPROLOL SUCC 25MG EXT REL TAB PO SCH (08:53)
[2019-03-22] MEDS: ASPIRIN 81 MG ECTAB PO SCH (08:53)
[2019-03-22] MEDS: AMLODIPINE BESYLATE 5 MG TAB PO SCH (08:53)
[2019-03-22] MEDS: BRIMONIDINE TARTRATE 0.1% OPB SCH ×2 (08:54→18:26)
[2019-03-22] MEDS: ENOXAPARIN INJ 30 MG/0.3 ML SYR SQ SCH (08:54)
[2019-03-22] MEDS ORDERED: ALUMINUM/MAGNESIUM SUSP 50 ML, DiphenhydrAMINE Syrup 125 MG, LIDOCAINE HCL 2% VISCOUS 4... PO PRN (10:56)
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
[2019-03-22] MEDS: ONDANSETRON INJ 2 MG/ML 2 ML VIAL IV PRN (13:37)
[2019-03-22] MEDS: ATORVASTATIN 40 MG TAB PO SCH (20:31)
[2019-03-22] MEDS: AMOXICILLIN 500 MG CAP PO SCH (20:34)
[2019-03-22] MEDS: TRAVOPROST Z 0.004% OPH SOLN 2.5 ML BTL OP SCH (21:52)
[2019-03-23 06:36] LABS: Albumin Level 2.9 gm/dl (3.4-5.0); BUN Creatinine Ratio 9.9 (10-20); Calcium 9.4 mg/dl (8.5-10.1); Creatinine Clr Calc Pharmacy 41.3 ml/min; Est GFR (African American) 64.8; Est GFR (Non-African American) 55.9; Potassium 3.4 mmol/L (3.5-5.1)
[2019-03-23 06:39] LABS: Albumin Globulin Ratio 0.8 (0.9-2); Bilirubin,Total 1.5 mg/dl (0.2-1); Globulin 3.7 gm/dl (2.5-4.0); Total Protein 6.6 gm/dl (6.4-8.2)
[2019-03-23] MEDS: ONDANSETRON INJ 2 MG/ML 2 ML VIAL IV PRN (09:29)
[2019-03-23] MEDS: BRIMONIDINE TARTRATE 0.1% OPB SCH ×2 (09:33→20:29)
[2019-03-23] MEDS: ENOXAPARIN INJ 30 MG/0.3 ML SYR SQ SCH (09:33)
--- NOTE | 2019-03-23 11:45 | Fluoroscopy Report ---
FL barium swallow w/air RTN CLINICAL HISTORY: early satiety; globus sensation COMPARISON STUDY: No previous studies for comparison. Fluoroscopy time: 2.3 minutes. Fluoroscopic images: 25. FINDINGS: No esophageal mass or stricture was identified. Note was made of moderate to severe esophag eal dysmotility. Patient was unable to swallow the barium tablet. No reflux was elicited. No hiatal h ernia was identified. IMPRESSION: 1. Moderate to severe esophageal dysmotility. 2. No esophageal mass or stricture. ACT 112: Negative or not required by law. Electronically signed by: Tesfaye Cortes M.D. 03/23/2019 11:44 AM
[2019-03-23] MEDS: AMOXICILLIN 500 MG CAP PO SCH ×3 (11:57→20:30)
[2019-03-23] MEDS: ASPIRIN 81 MG ECTAB PO SCH (11:59)
[2019-03-23] MEDS: TRIAMTERENE/HCTZ 37.5/25MG TAB PO SCH (11:59)
[2019-03-23] MEDS: AMLODIPINE BESYLATE 5 MG TAB PO SCH (12:00)
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
[2019-03-23] MEDS: METOPROLOL SUCC 25MG EXT REL TAB PO SCH (12:34)
[2019-03-23] MEDS: PANTOprazole 40 MG TAB PO SCH ×2 (12:45→20:30)
[2019-03-23] MEDS: POTASSIUM CHLORIDE 20 MEQ TABCR PO SCH (12:48)
[2019-03-23] MEDS: CEROVITE ADV FORMULA TAB PO SCH ×2 (12:58→20:31)
[2019-03-23] MEDS: POTASSIUM CHLORIDE 10 MEQ TABCR PO SCH (20:30)
[2019-03-23] MEDS: ATORVASTATIN 40 MG TAB PO SCH (20:31)
[2019-03-23] MEDS: SUCRALFATE 1 GM/10 ML UDC PO SCH (20:43)
[2019-03-23] MEDS: TRAVOPROST Z 0.004% OPH SOLN 2.5 ML BTL OP SCH (22:36)
[2019-03-24 07:52] LABS: Albumin Level 3.1 gm/dl (3.4-5.0); BUN Creatinine Ratio 7.4 (10-20); Calcium 9.7 mg/dl (8.5-10.1); Creatinine Clr Calc Pharmacy 37.2 ml/min; Est GFR (African American) 57.2; Est GFR (Non-African American) 49.3; Magnesium 1.7 mg/dl (1.8-2.4); Potassium 3.3 mmol/L (3.5-5.1)
[2019-03-24 07:56] LABS: Albumin Globulin Ratio 0.7 (0.9-2); Bilirubin,Total 1.9 mg/dl (0.2-1); Globulin 4.2 gm/dl (2.5-4.0); Total Protein 7.3 gm/dl (6.4-8.2)
[2019-03-24 08:45] LABS: Hematocrit (blood only) 38.8 % (37-47); Hemoglobin 12.9 g/dL (12.0-16.0); Mean Corpuscular Hemoglobin 28.7 pg (25-34); Mean Corpuscular Hgb Conc 33.2 g/dL (32-36); Mean Corpuscular Volume 86.2 fL (80-100); Mean Platelet Volume 10.8 fL (7.4-10.4); Platelet Count 211 K/uL (130-400); RDW Coefficient of Variation 14.6 % (11.5-14.5); RDW Standard Deviation 45.4 fL (36.4-46.3); White Blood Count 9.97 K/uL (4.8-10.8)
[2019-03-24] MEDS ORDERED: MAGNESIUM SULFATE / D5W 1 GM/100 ML BAG IV ONE (08:45)
[2019-03-24] MEDS ORDERED: POTASSIUM CHLORIDE 20 MEQ TABCR PO ONE (08:45)
[2019-03-24] MEDS: BRIMONIDINE TARTRATE 0.1% OPB SCH ×2 (08:58→20:16)
[2019-03-24] MEDS: SUCRALFATE 1 GM/10 ML UDC PO SCH ×4 (09:00→20:17)
[2019-03-24] MEDS: METOPROLOL SUCC 25MG EXT REL TAB PO SCH (09:04)
[2019-03-24] MEDS: ENOXAPARIN INJ 30 MG/0.3 ML SYR SQ SCH (10:22)
[2019-03-24] MEDS: NSS + 20MEQ KCL 20 MEQ/1,000 ML BAG IV SCH (11:21)
[2019-03-24] MEDS: ASPIRIN 81 MG ECTAB PO SCH (13:55)
[2019-03-24] MEDS: POTASSIUM CHLORIDE 20 MEQ TABCR PO SCH (13:55)
[2019-03-24] MEDS: CEROVITE ADV FORMULA TAB PO SCH ×2 (13:55→20:19)
[2019-03-24] MEDS: AMOXICILLIN 500 MG CAP PO SCH ×3 (13:55→20:17)
[2019-03-24] MEDS: TRIAMTERENE/HCTZ 37.5/25MG TAB PO SCH (13:55)
[2019-03-24] MEDS: PANTOprazole 40 MG TAB PO SCH ×2 (13:56→20:19)
[2019-03-24] MEDS: AMLODIPINE BESYLATE 5 MG TAB PO SCH (13:56)
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
[2019-03-24] MEDS: ONDANSETRON INJ 2 MG/ML 2 ML VIAL IV PRN (19:29)
--- NOTE | 2019-03-24 19:49 | Magnetic Resonance Report ---
MR MRCP CLINICAL HISTORY: elevated bilirubin COMPARISON STUDY: CT scan dated 03/18/2019 FINDINGS: There are small T2 bright right renal lesions, consistent with cysts. The largest measures 1 cm. There is a small amount of layering debris within the gallbladder. This correlates with the hyperdens e layering the milk of calcium within the gallbladder as visualized on the prior CT scan. The pancreatic duct appears normal. There is no evidence of intra or extrahepatic biliary ductal dilatation. There are no ductal filling defects to indicate calculi. IMPRESSION: 1. Milk of calcium within the gallbladder 2. No ductal calculi identified 3. No evidence of biliary or pancreatic ductal dilatation ACT 112: Negative or not required by law. Electronically signed by: Margarito Irizarry M.D. 03/24/2019 7:48 PM
[2019-03-24] MEDS: POTASSIUM CHLORIDE 10 MEQ TABCR PO SCH (20:18)
[2019-03-24] MEDS: ATORVASTATIN 40 MG TAB PO SCH (20:19)
[2019-03-24] MEDS: TRAVOPROST Z 0.004% OPH SOLN 2.5 ML BTL OP SCH (22:41)
[2019-03-25] MEDS: NSS + 20MEQ KCL 20 MEQ/1,000 ML BAG IV SCH ×2 (00:55→03:50)
[2019-03-25 06:14] LABS: Basophils # (auto) 0.02 K/uL (0-0.2); Basophils % (auto) 0.3 %; Eosinophils # (auto) 0.19 K/uL (0-0.5); Eosinophils % (auto) 2.5 %; Hematocrit (blood only) 34.7 % (37-47); Immature Granulocytes # (auto) 0.01 K/uL (0.00-0.02); Immature Granulocytes % (auto) 0.1 %; Lymphocytes # (auto) 2.24 K/uL (1.2-3.4); Lymphocytes % (auto) 29.9 %; Mean Corpuscular Hemoglobin 29.3 pg (25-34); Mean Corpuscular Hgb Conc 34.6 g/dL (32-36); Mean Corpuscular Volume 84.6 fL (80-100); Mean Platelet Volume 9.9 fL (7.4-10.4); Monocytes # (auto) 0.56 K/uL (0.11-0.59); Monocytes % (auto) 7.5 %; Neutrophils # (auto) 4.47 K/uL (1.4-6.5); Neutrophils % (auto) 59.7 %; Platelet Count 215 K/uL (130-400); RDW Coefficient of Variation 14.3 % (11.5-14.5); RDW Standard Deviation 44.4 fL (36.4-46.3); White Blood Count 7.49 K/uL (4.8-10.8)
[2019-03-25 07:01] LABS: Albumin Globulin Ratio 0.7 (0.9-2); Albumin Level 2.6 gm/dl (3.4-5.0); Bilirubin,Total 1.4 mg/dl (0.2-1); Calcium 8.6 mg/dl (8.5-10.1); Creatinine Clr Calc Pharmacy 41.8 ml/min; Est GFR (African American) 65.7; Est GFR (Non-African American) 56.7; Globulin 3.8 gm/dl (2.5-4.0); Magnesium 1.7 mg/dl (1.8-2.4); Potassium 3.8 mmol/L (3.5-5.1); Total Protein 6.4 gm/dl (6.4-8.2)
[2019-03-25] MEDS: BRIMONIDINE TARTRATE 0.1% OPB SCH ×2 (09:01→20:06)
[2019-03-25] MEDS: ENOXAPARIN INJ 30 MG/0.3 ML SYR SQ SCH (09:02)
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
--- NOTE | 2019-03-25 10:40 | Ultrasound Report ---
ULTRASOUND RIGHT UPPER QUADRANT ABDOMEN CLINICAL HISTORY: Elevated bilirubin. Nausea and vomiting. COMPARISON STUDY: Abdominal CT dated 03/18/2019. MRCP dated 03/24/2019. TECHNIQUE: Real-time, grayscale, and color flow sonography of the right upper quadrant of the abdomen was performed. Images are reviewed in the transverse and longitudinal planes. FINDINGS: Liver: The liver is normal in size and echotexture. There is no intrahepatic biliary ductal dilatatio n. The main portal vein is patent. Gallbladder: Shadowing gallstones are identified. There is no gallbladder wall thickening or perichol ecystic fluid. A sonographic Pop's sign is reportedly absent. The common bile duct measures up to 0.5 cm in diameter. Pancreas: Visualized portions of the pancreatic head and body are normal in appearance. The splenic v ein is patent. Right kidney: Survey images of the right kidney demonstrate normal size and echotexture. There is no hydronephrosis. An 8 mm cyst is noted in the lower pole. Ascites: None. IMPRESSION: Cholelithiasis without sonographic evidence of acute cholecystitis. ACT 112: Negative or not required by law. Electronically signed by: Amari Bridges M.D. 03/25/2019 10:38 AM
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
[2019-03-25] MEDS ORDERED: MAGNESIUM SULFATE / D5W 1 GM/100 ML BAG IV ONE (12:45)
[2019-03-25] MEDS: AMOXICILLIN 500 MG CAP PO SCH (13:15)
[2019-03-25] MEDS: METOPROLOL SUCC 25MG EXT REL TAB PO SCH (13:18)
[2019-03-25] MEDS: TRIAMTERENE/HCTZ 37.5/25MG TAB PO SCH (13:21)
[2019-03-25] MEDS: AMLODIPINE BESYLATE 5 MG TAB PO SCH (13:21)
[2019-03-25] MEDS: POTASSIUM CHLORIDE 20 MEQ TABCR PO SCH (14:11)
[2019-03-25] MEDS: ASPIRIN 81 MG ECTAB PO SCH (14:11)
[2019-03-25] MEDS: PANTOprazole 40 MG TAB PO SCH ×2 (14:11→20:08)
[2019-03-25] MEDS: SUCRALFATE 1 GM/10 ML UDC PO SCH ×4 (14:11→20:06)
[2019-03-25] MEDS: CEROVITE ADV FORMULA TAB PO SCH ×2 (14:11→20:48)
[2019-03-25] MEDS ORDERED: HydrALAZINE HCL 20 MG/ML VIAL IV PRN (16:12)
[2019-03-25] MEDS: ONDANSETRON INJ 2 MG/ML 2 ML VIAL IV PRN (17:32)
--- NOTE | 2019-03-25 18:32 | Progress Note ---
Date of Service March 25, 2019 Assessment & Plan Admission and Anticipated Discharge Date Admission Date: March 19, 2019 Subjective Patient and her agreed for EGD tomorrow to evaluate for dysphagia and suspected GERD, please keep NPO after midnight. Results & Data ([facility]) Vital Signs (Past 12 Hours) Vital Signs Temp Pulse Pulse Resp BP Pulse Ox 03/25/19 16:28 151/87 H 03/25/19 15:39 36.5 C 73 17 178/91 H 96 03/25/19 07:16 36.9 C 76 16 169/85 H 95
[2019-03-25] MEDS: POTASSIUM CHLORIDE 10 MEQ TABCR PO SCH (20:07)
[2019-03-25] MEDS: ATORVASTATIN 40 MG TAB PO SCH (20:56)
[2019-03-25] MEDS: TRAVOPROST Z 0.004% OPH SOLN 2.5 ML BTL OP SCH (22:26)
[2019-03-26 05:40] LABS: Albumin Level 2.8 gm/dl (3.4-5.0); BUN Creatinine Ratio 10.7 (10-20); Calcium 8.8 mg/dl (8.5-10.1); Creatinine Clr Calc Pharmacy 39.1 ml/min; Est GFR (African American) 60.8; Est GFR (Non-African American) 52.4; Magnesium 1.9 mg/dl (1.8-2.4); Potassium 3.7 mmol/L (3.5-5.1)
[2019-03-26 05:43] LABS: Albumin Globulin Ratio 0.7 (0.9-2); Bilirubin,Total 1.3 mg/dl (0.2-1); Globulin 3.8 gm/dl (2.5-4.0); Total Protein 6.6 gm/dl (6.4-8.2)
[2019-03-26] MEDS: SUCRALFATE 1 GM/10 ML UDC PO SCH ×4 (09:00→20:31)
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
[2019-03-26] MEDS: ONDANSETRON INJ 2 MG/ML 2 ML VIAL IV PRN (09:38)
[2019-03-26] MEDS: ENOXAPARIN INJ 30 MG/0.3 ML SYR SQ SCH (09:49)
[2019-03-26] MEDS: BRIMONIDINE TARTRATE 0.1% OPB SCH ×2 (09:49→20:30)
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
[2019-03-26] MEDS ORDERED: PROPOFOL IV EMULSION 10 MG/ML 20 ML VIAL IV ONE (11:08)
[2019-03-26] MEDS ORDERED: LIDOCAINE HCL 2% 2 ML VIAL/AMP(20MG/ML) INFIL ONE (11:08)
--- NOTE | 2019-03-26 11:08 | History & Physical Bridge Note ---
Date of Service March 26, 2019 History & Physical Bridge Note I have examined the patient, reviewed the History & Physical and in the interval since the performance of the History & Physical I have noted the following changes of clinical significance: no changes noted. Patient is noting difficulty with intermittent swallowing problems. This is been ongoing for many years. She also notes having persistent nausea and occasional emesis with discomfort after eating meals. Imaging does show evidence of cholelithiasis. If no obvious explanation for his nausea seen today perhaps she would benefit from a general surgery consultation.
--- NOTE | 2019-03-26 11:29 | GI REPORT ---
Patient Name: Venita Arteaga Procedure Date: 03/26/2019 11:18 AM Date of : 1930 Admit Type: Inpatient Age: 88 Gender: Female Attending MD: Arron Nielson DO Procedure: Upper GI endoscopy Providers: Arron Nielson DO Referring MD: Salbador Macias Md Indications: Dysphagia, Nausea Medicines: Monitored Anesthesia Care Complications: No immediate complications. Estimated blood loss: Minimal. Estimated Blood Loss: Estimated blood loss was minimal. Procedure: Pre-Anesthesia Assessment: - Prior to the procedure, a History and Physical was performed, and patient medications, allergies and sensitivities were reviewed. The patient's tolerance of previous anesthesia was reviewed. - The risks and benefits of the procedure and the sedation options and risks were discussed with the patient. All questions were answered and informed consent was obtained. - Patient identification and proposed procedure were verified prior to the procedure by the physician, the nurse and the enterostomal therapy nurse. The procedure was verified in the procedure room. - Pre-procedure physical examination revealed no contraindications to sedation. - ASA Grade Assessment: IV - A patient with severe systemic disease that is a constant threat to life. - After reviewing the risks and benefits, the patient was deemed in satisfactory condition to undergo the procedure. - The anesthesia plan was to use monitored anesthesia care (MAC). - Immediately prior to administration of medications, the patient was re-assessed for adequacy to receive sedatives. - The heart rate, respiratory rate, oxygen saturations, blood pressure, adequacy of pulmonary ventilation, and response to care were monitored throughout the procedure. - The physical status of the patient was re-assessed after the procedure. After obtaining informed consent, the endoscope was passed under direct vision. Throughout the procedure, the patient's blood pressure, pulse, and oxygen saturations were monitored continuously. The scope was introduced through the mouth, and advanced to the third part of duodenum. The upper GI endoscopy was accomplished without difficulty. The patient tolerated the procedure well. Findings: A mild Schatzki ring was found at the gastroesophageal junction. A guidewire was placed and the scope was withdrawn. Dilation was performed with a Savary dilator with no resistance at 54 Fr. The dilation site was examined following endoscope reinsertion and showed mild mucosal disruption. Estimated blood loss was minimal. A small hiatal hernia was found. The proximal extent of the gastric folds (end of tubular esophagus) was 38 cm from the incisors. The hiatal narrowing was 40 cm from the incisors. The Z-line was 38 cm from the incisors. Diffuse mild inflammation characterized by congestion (edema), erythema and granularity was found in the entire examined stomach. Biopsies were taken with a cold forceps for histology. The pathology specimen was placed into Bottle A. Estimated blood loss was minimal. The examined duodenum was normal. Impression: - Mild Schatzki ring. Dilated to 54 Fr. - Small hiatal hernia. - Gastritis. Biopsied. - Normal examined duodenum. Recommendation: - [facility] patient to [facility]. - Use Prilosec (omeprazole) 20 mg PO daily. - Repeat upper endoscopy PRN for retreatment. -If nausea persists would consider a general surgery consultation for her calcified appearing sludge in her gallbladder Arron Nielson D.O. Arron Nieslon, DO 03/26/2019 11:29:18 AM This report has been signed electronically. Note Initiated On: 03/26/2019 11:18 AM Number of Addenda: 0 I attest to the content of the Intraoperative Record and orders documented therein, exceptions below {[id number]}
--- NOTE | 2019-03-26 12:05 | Communication Note ---
Date of Service: March 26, 2019 The patient underwent upper endoscopy today. We did dilation of a Schatzki's ring to 54 Chinese. Recommendations Once daily PPI, Protonix or Prilosec 20 mg/day Advance diet as tolerated If nausea persists would consider a general surgery evaluation for sludge seen on her recent ultrasound and CT Please call with any questions or concerns
--- NOTE | 2019-03-26 12:27 | Anesthesiology Progress Note ---
Date of Service March 26, 2019 Anesthesia Post Procedure Vital Signs Vital Signs: Temp Pulse Pulse Pulse Resp BP BP 03/26/19 12:00 60 18 143/70 H 03/26/19 11:45 60 16 115/58 L 03/26/19 11:30 98.4 F 63 14 104/59 L 03/26/19 10:56 98.4 F 69 18 164/86 H 03/26/19 07:45 98.4 F 70 21 140/98 03/25/19 23:03 98.2 F 65 18 138/85 03/25/19 16:28 151/87 H 03/25/19 15:39 97.7 F 73 17 178/91 H Pulse Ox 03/26/19 12:00 93 03/26/19 11:45 93 03/26/19 11:30 96 03/26/19 10:56 93 03/26/19 07:45 95 03/25/19 23:03 95 03/25/19 16:28 03/25/19 15:39 96 Transfer of Care Handoff Completed per policy Notes Mental Status: alert / awake / arousable and participated in evaluation Patient Amnestic to Procedure: Yes Nausea / Vomiting: adequately controlled Pain: adequately controlled Airway Patency, RR, SpO2: stable & adequate BP & HR: stable & adequate Hydration State: stable & adequate Anesthetic Complications: no major complications apparent and Pt Satisfied with anesthetic care
[2019-03-26] MEDS: CEROVITE ADV FORMULA TAB PO SCH ×2 (14:01→20:32)
[2019-03-26] MEDS: PANTOprazole 40 MG TAB PO SCH ×2 (14:02→20:32)
[2019-03-26] MEDS: METOPROLOL SUCC 25MG EXT REL TAB PO SCH (14:02)
[2019-03-26] MEDS: ASPIRIN 81 MG ECTAB PO SCH (14:02)
[2019-03-26] MEDS: AMLODIPINE BESYLATE 5 MG TAB PO SCH (14:03)
[2019-03-26] MEDS: TRIAMTERENE/HCTZ 37.5/25MG TAB PO SCH (14:03)
[2019-03-26] MEDS: POTASSIUM CHLORIDE 20 MEQ TABCR PO SCH (14:12)
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
[2019-03-26] MEDS: POTASSIUM CHLORIDE 10 MEQ TABCR PO SCH (20:31)
[2019-03-26] MEDS: ATORVASTATIN 40 MG TAB PO SCH (20:32)
[2019-03-26] MEDS: TRAVOPROST Z 0.004% OPH SOLN 2.5 ML BTL OP SCH (23:16)
--- NOTE | 2019-03-27 08:33 | Anesthesiology Progress Note ---
Date of Service March 27, 2019 Anesthesia Post Procedure Vital Signs Vital Signs: Temp Pulse Pulse Pulse Resp BP BP 03/27/19 07:11 36.7 C 72 18 152/86 H 03/26/19 22:30 36.7 C 79 17 137/78 03/26/19 20:28 36.8 C 70 17 175/49 H 03/26/19 18:40 77 159/84 H 03/26/19 17:59 190/79 H 03/26/19 15:45 36.8 C 70 17 183/93 H 03/26/19 14:37 36.4 C L 65 18 173/89 H 03/26/19 13:39 36.7 C 67 21 160/85 H 03/26/19 13:05 36.8 C 63 16 156/82 H 03/26/19 12:33 36.7 C 67 17 156/79 H 03/26/19 12:00 60 18 143/70 H 03/26/19 11:45 60 16 115/58 L 03/26/19 11:30 36.9 C 63 14 104/59 L 03/26/19 10:56 36.9 C 69 18 164/86 H Pulse Ox 03/27/19 07:11 94 03/26/19 22:30 94 03/26/19 20:28 97 03/26/19 18:40 03/26/19 17:59 03/26/19 15:45 94 03/26/19 14:37 97 03/26/19 13:39 95 03/26/19 13:05 94 03/26/19 12:33 96 03/26/19 12:00 93 03/26/19 11:45 93 03/26/19 11:30 96 03/26/19 10:56 93 Notes Mental Status: alert / awake / arousable and participated in evaluation Patient Amnestic to Procedure: Yes Nausea / Vomiting: adequately controlled Pain: adequately controlled Airway Patency, RR, SpO2: stable & adequate BP & HR: stable & adequate Hydration State: stable & adequate Anesthetic Complications: no major complications apparent and Pt Satisfied with anesthetic care
[2019-03-27] MEDS ORDERED: ONDANSETRON 4 MG OD TAB PO PRN (09:01)
[2019-03-27] MEDS: ENOXAPARIN INJ 30 MG/0.3 ML SYR SQ SCH (09:12)
[2019-03-27] MEDS: BRIMONIDINE TARTRATE 0.1% OPB SCH ×2 (09:12→17:38)
[2019-03-27] MEDS: METOPROLOL SUCC 25MG EXT REL TAB PO SCH (10:32)
[2019-03-27] MEDS: AMLODIPINE BESYLATE 5 MG TAB PO SCH (10:33)
[2019-03-27] MEDS: TRIAMTERENE/HCTZ 37.5/25MG TAB PO SCH (10:34)
[2019-03-27] MEDS: POTASSIUM CHLORIDE 20 MEQ TABCR PO SCH (10:35)
[2019-03-27] MEDS: SUCRALFATE 1 GM/10 ML UDC PO SCH ×4 (10:35→21:20)
[2019-03-27] MEDS: ACETAMINOPHEN 325 MG TAB PO PRN (10:37)
[2019-03-27] MEDS: CEROVITE ADV FORMULA TAB PO SCH ×2 (10:48→21:19)
[2019-03-27] MEDS: PANTOprazole 40 MG TAB PO SCH ×2 (10:50→21:20)
[2019-03-27] MEDS: ASPIRIN 81 MG ECTAB PO SCH (10:50)
--- NOTE | 2019-03-27 13:26 | Surgery Progress Note ---
Date of Service March 27, 2019 Assessment & Plan (1) Cholelithiasis: pt is a 88 year-old female who was admitted to hospital for nausea and vomiting, EGD finding- Schatzki ring, gastritis CT scan, U/S , MRCP showing gallstones without cholecystitis afebrile Plan: No need for surgical intervention at this time as there is no evidence of acute cholecystitis Patient can follow-up with Dr. Hall as an outpatient to discuss possible elective cholecystectomy given gallstones if she continues to be symptomatic. Would recommend low fat diet Continue PPI for gastritis Continue medical management our services signing off, please call with questions or concerns. Dr. Hall has seen patient, agrees with above. Subjective feeling okay this morning no nausea or vomiting no abdominal pain tolerating diet Physical Exam Constitutional: WD/WN, vitals as above no acute distress Respiratory: normal respiratory effort; no respiratory distress Skin: no rashes, warm and dry Psychiatric: A+Ox3, euthymic affect Results & Data Vital Signs (Past 12 Hours) Vital Signs Temp Pulse Resp BP Pulse Ox 03/27/19 07:11 36.7 C 72 18 152/86 H 94
[2019-03-27] MEDS ORDERED: Nursing to Pharmacy Communication ONE (14:52)
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
[2019-03-27] MEDS: ATORVASTATIN 40 MG TAB PO SCH (21:19)
[2019-03-27] MEDS: TRAVOPROST Z 0.004% OPH SOLN 2.5 ML BTL OP SCH (21:20)
[2019-03-27] MEDS: POTASSIUM CHLORIDE 10 MEQ TABCR PO SCH (21:20)
[2019-03-28] MEDS: ASPIRIN 81 MG ECTAB PO SCH (07:43)
[2019-03-28] MEDS: SUCRALFATE 1 GM/10 ML UDC PO SCH ×4 (07:43→21:08)
[2019-03-28] MEDS: TRIAMTERENE/HCTZ 37.5/25MG TAB PO SCH (07:44)
[2019-03-28] MEDS: CEROVITE ADV FORMULA TAB PO SCH ×2 (07:44→21:08)
[2019-03-28] MEDS: POTASSIUM CHLORIDE 20 MEQ TABCR PO SCH (07:44)
[2019-03-28] MEDS: AMLODIPINE BESYLATE 5 MG TAB PO SCH (07:44)
[2019-03-28] MEDS: METOPROLOL SUCC 25MG EXT REL TAB PO SCH (07:45)
[2019-03-28] MEDS: PANTOprazole 40 MG TAB PO SCH ×2 (07:45→21:08)
[2019-03-28] MEDS: ENOXAPARIN INJ 30 MG/0.3 ML SYR SQ SCH (07:45)
[2019-03-28 07:46] LABS: C Reactive Protein < 0.29 mg/dl (0-0.29); Creatinine Clr Calc Pharmacy 37.6 ml/min; Est GFR (African American) 57.8; Est GFR (Non-African American) 49.9
[2019-03-28] MEDS: BRIMONIDINE TARTRATE 0.1% OPB SCH ×2 (07:46→21:07)
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
--- NOTE | 2019-03-28 11:20 | Gastroenterology Progress Note ---
Date of Service March 28, 2019 Assessment & Plan (1) Weakness: 88 year old female with history of CVA, dyslipidemia, HTN, COPD, asthma, GERD, and short-term memory loss admitted w/ weakness, fatigue, decreased PO intake and reported nausea/vomiting for about three weeks. She has underwent extensive GI testing to include CTAP, ABD US, MRCP, EGD and was scheduled for a GES but had to cancel due to her reluctance to trial PO intake for evaluation of her symptoms. Today she reports she just is not hungry, cannot taste food, has a very dry mouth and is weak and fatigued. She denies any abdominal pain, nausea/vomiting or post-prandial symptoms. Chart review indicated her last episode of emesis was on 03/24, last BM was small volume stool 03/26. She is ordered antiemetics PRN, does not appear to be requesting too often (IV phenergan last use 03/19, IV Zofran last use 03/26, PO Zofran last use 03/27.) She was evaluated by general surgery given the possibility of her previously reported symptoms could be related to gallbladder disease. - She did not tolerate GES - Will discuss with attending EUS but patient somewhat reluctant to undergo additional testing - Check a KUB for constipation - If KUB concerning for large stool burden, would start a bowel regimen with miralax 1 capful twice daily - Continue Pantoprazole and carafate as ordered - Can trial Gas-Ex twice daily - Can trial scheduled zofran, pt denies nausea/vomiting but chart review indicated patient who was not present during my interview reports she is having these symptoms Thank you for allowing us to participate in the care of this patient. Please call with any acute changes, questions or concerns. Please see addendum below with additional recommendation from my supervising physician. Admission and Anticipated Discharge Date Admission Date: March 19, 2019 Supervising Physician Co-Signing Physician Notes I saw and evaluated the patient. We were asked to see the patient due to persistent problems with eating. She denies having any difficulty with swallowing and on talking with her she was able to eat some solids yesterday. The patient does seem very confused notes that she just does not want to be around any longer. I wonder if she may have a logic sequela as a result of her prior strokes from a several years ago, perhaps she has underlying dementia Recommendations Consider a neurology consultation No new recommendations with regard to assistance with eating from our service at the present time Given the endoscopy I would not recommend further evaluation with a motility study at the present time Subjective GI asked to re-evaluate for ongoing nausea Pt was seen and evaluated, chart reviewed Pt is a poor historian, no family at bedside bilingual student tutor present to aid in history She reports he is "tired, exhausted, cant keep her eyes open and just is not hungry" She adamently denies any abdominal pain, nausea, vomiting to me Denies post prandial pain, nausea/vomiting to me Reports she does have gas gas/burping/belching after eating When I asked her why she is not eating she tells me again "not hungry, food does not taste good" Passing gas Per nursing very small volume stool 2/3 days ago GES: pt refused PO intake during test ABD US: Cholelithiasis without sonographic evidence of acute cholecystitis. MRCP: Milk of calcium within the gallbladder No ductal calculi identified No evidence of biliary or pancreatic ductal dilatation Barium Swallow: Moderate to severe esophageal dysmotility. No esophageal mass or stricture. EGD: Mild Schatzki ring. Dilated to 54 Fr. Small hiatal hernia. Gastritis. Biopsied. Normal examined duodenum CTAP: motion degraded examination. are no acute infectious or inflammatory findings in the abdomen or pelvis. Cholelithiasis. Review of Systems Constitutional: + fatigue, + malaise, + weakness, + anorexia and + daytime sleepiness; no fever and no chills Respiratory: no cough and no dyspnea Cardiovascular: no chest pain and no radiating jaw, neck or arm pain Gastrointestinal: + belching, + early satiety and + problem reported (decreased appetite, ); no abdominal pain, no bloating, no heartburn, no nausea, no vomiting, no coffee ground emesis, no hematemesis, no pain with swallowing, no dysphagia, no cramping, no excessive flatulence, no change in bowel habits, no change in stools, no constipation, no diarrhea/loose stools, no fecal incontinence, no constant urge to pass stools, no blood in stools and no melena Physical Exam Constitutional: no acute distress frail appearing elderly female Neck: trachea midline Respiratory: normal respiratory effort Cardiovascular: Rate/Rhythm: regular rate and regular rhythm Gastrointestinal (Abdomen): Inspection/Auscultation: normal bowel sounds (hypoactive) Percussion/Palpation: abdomen soft; abdomen nontender, no guarding and abdomen not rigid Skin: no rashes, warm and dry Results & Data ([facility]) Vital Signs (Past 12 Hours) Vital Signs Temp Pulse Resp BP Pulse Ox 03/28/19 07:57 36.8 C 64 16 130/74 95 Laboratory Results 03/28/19 03/28/19 Range/Units 06:48 06:48 ESR 36 H (0-21) mm/hr Creatinine 1.00 (0.6-1.2) mg/dl Est Cr Clr Drug Dosing 37.6 ml/min Est GFR ( Amer) 57.8 Est GFR (Non-Af Amer) 49.9 C-Reactive Protein < 0.29 (0-0.29) mg/dl
[2019-03-28 11:45] LABS: Basophils # (auto) 0.02 K/uL (0-0.2); Basophils % (auto) 0.2 %; Eosinophils # (auto) 0.22 K/uL (0-0.5); Eosinophils % (auto) 2.5 %; Hematocrit (blood only) 37.4 % (37-47); Hemoglobin 12.7 g/dL (12.0-16.0); Immature Granulocytes # (auto) 0.03 K/uL (0.00-0.02); Immature Granulocytes % (auto) 0.3 %; Lymphocytes # (auto) 3.28 K/uL (1.2-3.4); Lymphocytes % (auto) 37.1 %; Mean Corpuscular Hemoglobin 28.6 pg (25-34); Mean Corpuscular Volume 84.2 fL (80-100); Mean Platelet Volume 10.9 fL (7.4-10.4); Monocytes # (auto) 0.86 K/uL (0.11-0.59); Monocytes % (auto) 9.7 %; Neutrophils # (auto) 4.42 K/uL (1.4-6.5); Neutrophils % (auto) 50.2 %; Platelet Count 241 K/uL (130-400); RDW Standard Deviation 43.3 fL (36.4-46.3); Red Blood Count 4.44 M/uL (4.2-5.4); White Blood Count 8.83 K/uL (4.8-10.8)
[2019-03-28 11:53] LABS: BUN Creatinine Ratio 16.2 (10-20); Calcium 9.2 mg/dl (8.5-10.1); Creatinine Clr Calc Pharmacy 36.1 ml/min; Est GFR (African American) 55.2; Est GFR (Non-African American) 47.6; Potassium 3.3 mmol/L (3.5-5.1)
[2019-03-28 11:56] LABS: Albumin Globulin Ratio 0.7 (0.9-2); Bilirubin,Total 1.3 mg/dl (0.2-1)
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
[2019-03-28] MEDS: ONDANSETRON 4 MG OD TAB PO SCH ×4 (13:33→23:20)
[2019-03-28] MEDS: MIRTAZAPINE TAB 15 MG TAB PO SCH (21:08)
[2019-03-28] MEDS: TRAVOPROST Z 0.004% OPH SOLN 2.5 ML BTL OP SCH (21:08)
[2019-03-28] MEDS: ATORVASTATIN 40 MG TAB PO SCH (21:08)
[2019-03-28] MEDS: POTASSIUM CHLORIDE 10 MEQ TABCR PO SCH (21:08)
[2019-03-29] MEDS: ONDANSETRON 4 MG OD TAB PO SCH ×6 (03:35→23:46)
[2019-03-29] MEDS: PANTOprazole 40 MG TAB PO SCH ×2 (09:30→20:25)
[2019-03-29] MEDS: SUCRALFATE 1 GM/10 ML UDC PO SCH ×4 (09:30→20:24)
[2019-03-29] MEDS: TRIAMTERENE/HCTZ 37.5/25MG TAB PO SCH (09:32)
[2019-03-29] MEDS: POTASSIUM CHLORIDE 20 MEQ TABCR PO SCH (09:33)
[2019-03-29] MEDS: CEROVITE ADV FORMULA TAB PO SCH ×2 (09:33→20:25)
[2019-03-29] MEDS: ENOXAPARIN INJ 30 MG/0.3 ML SYR SQ SCH (09:33)
[2019-03-29] MEDS: METOPROLOL SUCC 25MG EXT REL TAB PO SCH (09:33)
[2019-03-29] MEDS: ASPIRIN 81 MG ECTAB PO SCH (09:33)
[2019-03-29] MEDS: AMLODIPINE BESYLATE 5 MG TAB PO SCH (09:34)
[2019-03-29] MEDS: BRIMONIDINE TARTRATE 0.1% OPB SCH ×2 (09:39→20:26)
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
--- NOTE | 2019-03-29 13:14 | Palliative Care Progress Note ---
Date of Service March 29, 2019 Assessment & Plan (1) Goals of care, counseling/discussion: -Patient is feeling better today. She took her medications this morning and is eating/drinking without issue. No further N/V. -Patient and still maintain that their goal is for home. -I explained that without a terminal diagnosis, she may not qualify for hospice. Her COPD is mild, her albumin is only mildly low at 3.0, BMI is 28 without significant weight loss so far. Patient and are understanding. However, patient still maintains that her goal is to be comfortable at home and allow nature to take its course. They would still like to be evaluated by a hospice agency to see if she qualifies. -If patient does not qualify for hospice, would recommend going home with home health, and based on whether or not patient improves or declines at home, could transition to hospice later. Case management is going to make a referral. -Patient's children are arriving this evening and will be staying for at least a week to help out at home. -Patient has no symptom management needs at this time. We will continue to follow. (2) Cholelithiasis: (3) Weakness: (4) Nausea & vomiting: Subjective Patient is feeling better and brighter today. She ate breakfast and tolerated well. at the bedside. both patient and agree that patient is feeling better and now is willing to eat and take medications. Review of Systems Review of Systems: Denies pain or discomfort. No SOB or N/V. Physical Exam Constitutional: well developed and well nourished; no acute distress ENMT: external ear and nose normal, oropharynx normal Respiratory: + abnormal respiratory effort and no respiratory distress Cardiovascular: Rate/Rhythm: regular rate and regular rhythm Neurologic: moves all extremities and awake; not confused Psychiatric: A+Ox3, euthymic affect Results & Data Vital Signs (Past 12 Hours) Vital Signs Temp Pulse Resp BP BP Pulse Ox 03/29/19 07:36 36.8 C 84 20 148/85 H 151/85 H 93 Coding Level of Care Code 33718 Subseq Hosp Care Lvl 3 Diagnoses Goals of care, counseling/discussion Z71.89 Cholelithiasis K80.20 Weakness R53.1 Nausea & vomiting R11.2 Vomiting Intractability: non-intractable Vomiting type: unspecified Time Spent (min) 35 Time Spent Midlevel 35 minutes with >50% of the time spent at bedside with patient, family and case management discussing goals and plan of care. (1) Nausea & vomiting Vomiting Intractability: non-intractable Vomiting type: unspecified Qualified Code(s): R11.2 - Nausea with vomiting, unspecified
[2019-03-29] MEDS: ATORVASTATIN 40 MG TAB PO SCH (20:24)
[2019-03-29] MEDS: POTASSIUM CHLORIDE 10 MEQ TABCR PO SCH (20:24)
[2019-03-29] MEDS: MIRTAZAPINE TAB 15 MG TAB PO SCH (20:26)
[2019-03-29] MEDS: TRAVOPROST Z 0.004% OPH SOLN 2.5 ML BTL OP SCH (22:29)
[2019-03-30] MEDS: ONDANSETRON 4 MG OD TAB PO SCH ×3 (03:13→12:57)
[2019-03-30] MEDS: SUCRALFATE 1 GM/10 ML UDC PO SCH ×2 (09:44→12:57)
[2019-03-30] MEDS: BRIMONIDINE TARTRATE 0.1% OPB SCH (09:44)
[2019-03-30] MEDS: METOPROLOL SUCC 25MG EXT REL TAB PO SCH (09:45)
[2019-03-30] MEDS: CEROVITE ADV FORMULA TAB PO SCH (09:45)
[2019-03-30] MEDS: PANTOprazole 40 MG TAB PO SCH (09:45)
[2019-03-30] MEDS: ENOXAPARIN INJ 30 MG/0.3 ML SYR SQ SCH (09:45)
[2019-03-30] MEDS: POTASSIUM CHLORIDE 20 MEQ TABCR PO SCH (09:46)
[2019-03-30] MEDS: AMLODIPINE BESYLATE 5 MG TAB PO SCH (09:46)
[2019-03-30] MEDS: ASPIRIN 81 MG ECTAB PO SCH (09:47)
[2019-03-30] MEDS: TRIAMTERENE/HCTZ 37.5/25MG TAB PO SCH (09:47)
--- NOTE | 2019-03-30 13:03 | Palliative Care Progress Note ---
Date of Service March 30, 2019 Assessment & Plan (1) Goals of care, counseling/discussion: -Patient tells me again today that she is ready to go home. -There was a family meeting planned for 9am this morning, but no family present. -Called and spoke with patient's daughter, Kellie. Kellie just arrived from [place] last evening. I updated Kellie over the phone, gave rundown on this hospitalization. I also discussed that we have treated what is treatable, and patient declines further workup for things. The main issue is that patient will sometimes refuse to eat/drink and will refuse medications. However, yesterday patient was doing much better and took meds and ate. -I discussed with Kellie that as far as goals of care, patient and agree that the goal is to go home and be comfortable. As far as hospice, patient does not have a qualifying terminal diagnosis and she would be better suited for home health and eventual transition to hospital if she does in fact decline at home. Kellie verbalizes understanding, but also expressed her concern that some of this behavior may be her mother wanting attention. I provided support and stated that we have certainly taken all of her complaints seriously and provided appropriate workup for such. Kellie is understanding. -insurance account manager and home health agency plan to meet in person with and daughter later today to discuss discharge planning. -Palliative care will sign off. Please contact us with any further needs. (2) Cholelithiasis: (3) Weakness: (4) Nausea & vomiting: Subjective Patient is awake and alert today. Denied complaints for me. No family at bedside, but I did speak with patient's daughter, Kellie, on phone. Review of Systems Review of Systems: Denies pain or discomfort. No SOB or N/V. Physical Exam Constitutional: well developed and well nourished; no acute distress ENMT: external ear and nose normal, oropharynx normal Respiratory: + abnormal respiratory effort and no respiratory distress Cardiovascular: Rate/Rhythm: regular rate and regular rhythm Neurologic: moves all extremities and awake; not confused Psychiatric: A+Ox3, euthymic affect Results & Data Vital Signs (Past 12 Hours) Vital Signs Temp Pulse Resp BP Pulse Ox 03/30/19 07:28 36.5 C 70 16 153/84 H 95 Coding Level of Care Code 52939 Subseq Hosp Care Lvl 3 Diagnoses Goals of care, counseling/discussion Z71.89 Cholelithiasis K80.20 Weakness R53.1 Nausea & vomiting R11.2 Vomiting Intractability: non-intractable Vomiting type: unspecified Time Spent (min) 35 Time Spent Midlevel 35 minutes with >50% of the time spent at bedside with patient and on phone with family discussing condition and GOC. (1) Nausea & vomiting Vomiting Intractability: non-intractable Vomiting type: unspecified Qualified Code(s): R11.2 - Nausea with vomiting, unspecified
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
--- NOTE | 2019-04-03 07:06 | Coding Query ---
CODING QUERY To promote full compliance with coding requirements relating to patient care, provider participation is requested in all cases of entry level finance uncertainty. Please assist us with the question(s) below: Coding Question(s): Please specify below, in your clinical opinion, the most likely etiology of the Nausea and Vomiting. 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) ( ) Nausea & Vomiting most likely due to Schatzki Ring ( ) Nausea & Vomiting most likely due to UTI ( ) Nausea & Vomiting most likely due to Gastritis ( ) Nausea & Vomiting most likely due to Other: Please Specify ( x ) Nausea & Vomiting with Unknown likely etiology Physician's Response(s): Thank you Bri Bauer Principal Diagnosis: "that condition established after study, to be chiefly responsible for occasioning the admission of the patient to the hospital for care." Co-Existing Principal Diagnosis: "when two or more diagnoses equally meet the criteria for principal diagnosis as determined by the circumstances of admission, diagnostic work up, and/or therapy provided, and the Alphabetic Index, Tabular List, or another coding guideline does not provide sequencing direction, any one of the diagnoses may be sequenced first." "When the physician has documented what appears to be a current diagnosis in the body of the record, but has not included the diagnosis in the final diagnostic statement, the physician should be asked whether the diagnosis should be added." (Source Coding [facility] 2 QTR90. p3-4) RILEY
== END 2019-03-30 16:44 | disposition home health service (06) | DRG 392 ==
LOC: ED 22:08 → 3N 22:08 → SUATTDRO 03-19 02:37 → 3N 03-19 03:08 → SUATTDRO 03-19 15:55